=== PATIENT | male | born 1975 | race Caucasian/White ===

== ENCOUNTER 2016-04-27 17:14 | Emergency (ER) | payer SELFPAY ==
--- NOTE | 2016-04-27 17:39 | ER Document Report ---
ED Medical Screen (RME) - General Stated Complaint: ABDOMINAL PAIN Mode of Arrival: Ambulatory Information source: Patient Notes: Patient complains of lower abdominal pain that started yesterday. Patient denies any nausea, vomiting, diarrhea. Patient denies any urinary symptoms or fever. Last vomited was yesterday. hx: Hernia repair I have greeted and performed a rapid initial assessment of this patient. A comprehensive ED assessment and evaluation of the patient, analysis of test results and completion of the medical decision making process will be conducted by additional ED providers. TRAVEL OUTSIDE OF THE [place] IN LAST 30 DAYS: No - Related Data Allergies/Adverse Reactions: No Known Allergies Allergy (Verified 01/30/14 13:36) Past Medical History - Immunizations Hx Diphtheria, Pertussis, Tetanus Vaccination: Yes Physical Exam - Vital signs Vitals: Temp Pulse Resp BP Pulse Ox 97.6 F 67 18 128/86 H 97 04/27/16 17:27 04/27/16 17:27 04/27/16 17:27 04/27/16 17:27 04/27/16 17:27 - Abdominal Tenderness: Tender - Lower abdomen Course - Vital Signs Vital signs: Temp Pulse Resp BP Pulse Ox 97.6 F 67 18 128/86 H 97 04/27/16 17:27 04/27/16 17:27 04/27/16 17:27 04/27/16 17:27 04/27/16 17:27
[2016-04-27 18:38] LABS: ABSOLUTE BASOPHILS # (AUTO) 0.1 10^3/uL (0.0-0.2); ABSOLUTE EOSINOPHILS # (AUTO) 0.1 10^3/uL (0.0-0.6); ABSOLUTE LYMPHOCYTES (AUTO) 2.7 10^3/uL (0.5-4.7); ABSOLUTE MONOCYTES (AUTO) 0.8 10^3/uL (0.1-1.4); ABSOLUTE NEUT (AUTO) 5.5 10^3/uL (1.7-8.2); BASOPHILS % (AUTO) 1.4 % (0-2); EOSINOPHILS % (AUTO) 1.5 % (0-6); HEMATOCRIT 45.7 % (37.9-51.0); HGB HCT DIFFERENCE -0.7; LYMPHOCYTES % (AUTO) 29.2 % (13-45); MEAN CORPUSCULAR HEMOGLOBIN 29.2 pg (27.0-33.4); MEAN CORPUSCULAR HGB CONC 32.8 g/dL (32.0-36.0); MEAN CORPUSCULAR VOLUME 89 fl (80-97); RED BLOOD COUNT 5.14 10^6/uL (4.35-5.55); RED CELL DISTRIBUTION WIDTH 12.7 % (11.5-14.0); SEGMENTED NEUTROPHILS % (AUTO) 58.9 % (42-78); WHITE BLOOD COUNT 9.3 10^3/uL (4.0-10.5)
[2016-04-27 18:45] LABS: APPEARANCE,URINE SLIGHTLY-CLOUDY; BILIRUBIN,URINE NEGATIVE (NEGATIVE); GLUCOSE, URINE NEGATIVE (NEGATIVE); KETONES,URINE NEGATIVE (NEGATIVE); LEUKOCYTE ESTERASE,URINE NEGATIVE (NEGATIVE); NITRITE,URINE NEGATIVE (NEGATIVE); PROTEIN,URINE 30 mg/dL (NEGATIVE); UROBILINOGEN,URINE NEGATIVE mg/dL (<2.0)
[2016-04-27 18:56] LABS: ALANINE AMINOTRANSFERASE 26 U/L (21-72); ALBUMIN 4.2 g/dL (3.5-5.0); ALKALINE PHOSPHATASE 58 U/L (38-126); ANION GAP 10 (5-19); ASPARTATE AMINO TRANSFERASE 23 U/L (17-59); BILIRUBIN,TOTAL 1.6 mg/dL (0.2-1.3); BLOOD UREA NITROGEN 15 mg/dL (7-20); CARBON DIOXIDE 29 mmol/L (22-30); CHLORIDE 103 mmol/L (98-107); CREATININE RESULT 1.06 mg/dL (0.52-1.25); GLUCOSE 90 mg/dL (75-110); LIPASE 91.5 U/L (23-300); POTASSIUM 4.2 mmol/L (3.6-5.0); SODIUM 142.2 mmol/L (137-145); TOTAL PROTEIN 7.2 g/dL (6.3-8.2)
[2016-04-27] MEDS ORDERED: FENTANYL CITRATE INJ/PF 100 MCG/2 ML AMPUL IV ONE ×2 (19:44→22:04)
--- NOTE | 2016-04-27 19:44 | ER Document Report ---
ED GI/ - General Mode of Arrival: Ambulatory Information source: Patient TRAVEL OUTSIDE OF THE [place] IN LAST 30 DAYS: No - HPI Patient complains to provider of: Other - see narrative Timing/Duration: Persistent <GINA ANDUJAR - Last Filed: 04/27/16 23:07> <FEDE CHAMBERS - Last Filed: 04/29/16 01:29> - General Chief Complaint: Abdominal Pain Stated Complaint: ABDOMINAL PAIN Notes: Patient is a 40-year-old male that presents to the emergency department today with complaints of left-sided abdominal pain. Patient states his pain began yesterday after work. Patient states nothing happened at work that he can attribute to be the cause of this pain. Patient states he does feel mildly constipated. at bedside states that the patient was up all night last night and was diaphoretic and unable to sleep secondary to pain. Patient states he was trying to wait it out however the pain has not subsided. Patient denies any nausea, vomiting, diarrhea, or testicular pain. (GINA ANDUJAR) - Related Data Allergies/Adverse Reactions: No Known Allergies Allergy (Verified 04/27/16 17:38) Past Medical History - General Information source: Patient - Social History Smoking Status: Current Every Day Smoker Cigarette use (# per day): Yes Chew tobacco use (# tins/day): No Frequency of alcohol use: Occasional Drug Abuse: None Lives with: Family Family History: Reviewed & Not Pertinent Patient has suicidal ideation: No Patient has homicidal ideation: No - Medical History Medical History: Negative Surgical Hx: Negative - Immunizations Hx Diphtheria, Pertussis, Tetanus Vaccination: Yes <GINA ANDUJAR - Last Filed: 04/27/16 23:07> Review of Systems - Review of Systems Constitutional: No symptoms reported EENT: No symptoms reported Cardiovascular: No symptoms reported Respiratory: No symptoms reported Gastrointestinal: See HPI, Abdominal pain, Constipation. denies: Diarrhea, Nausea, Vomiting Genitourinary: No symptoms reported Male Genitourinary: denies: Testicular pain Musculoskeletal: No symptoms reported Skin: No symptoms reported Hematologic/Lymphatic: No symptoms reported Neurological/Psychological: No symptoms reported -: Yes All other systems reviewed and negative <GINA ANDUJAR - Last Filed: 04/27/16 23:07> Physical Exam <GINA ANDUJAR - Last Filed: 04/27/16 23:07> <FEDE CHAMBERS - Last Filed: 04/29/16 01:29> - Vital signs Vitals: Temp Pulse Resp BP Pulse Ox 97.6 F 67 18 128/86 H 97 04/27/16 17:27 04/27/16 17:27 04/27/16 17:27 04/27/16 17:27 04/27/16 17:27 (GINA ANDUJAR) (FEDE CHAMBERS) - Notes Notes: Physical Exam: General: Alert, appears uncomfortable. HEENT: Normocephalic. Atraumatic. PERRL. Extraocular movements intact. Oropharynx clear. Neck: Supple. Non-tender. Respiratory: No respiratory distress. Clear and equal breath sounds bilaterally. Cardiovascular: Regular rate and rhythm. Abdominal: Left lower quadrant abdominal pain, no guarding, rebound, or rigidity. No inguinal pain, no palpable hernia. No distension. Decreased Bowel Sounds. Back: Non-tender. No deformity or step off. Extremities: Moves all four extremities. Upper extremities: Normal inspection. Normal ROM. Lower extremities: Normal inspection.No edema. Normal ROM. Neurological: Normal cognition. AAOx4. Normal speech. Psychological: Normal affect. Normal Mood. Skin: Warm. Dry. Normal color. (GINA ANDUJAR) Course - Laboratory Result Diagrams: 04/27/16 18:20 04/27/16 18:20 <GINA ANDUJAR - Last Filed: 04/27/16 23:07> - Laboratory Result Diagrams: 04/27/16 18:20 04/27/16 18:20 <FEDE CHAMBERS - Last Filed: 04/29/16 01:29> - Re-evaluation Re-evalutation: 04/27/16 23:38 I personally performed the services described in the documentation, reviewed and edited the documentation which was dictated to my scribe in my presence, and it accurately records my words and actions. Patient presents emergency, left-sided abdominal pain. He is well-appearing nontoxic negative acute labs no fever on examination you can palpate a tightness in his rectus abdominis muscle on the left. No guarding rebound rigidity acute CT scan of the abdomen and pelvis shows no acute findings. The documentation is wrong at says no oral contrast and the read says no significant acute findings on scan with IV contrast patient did oral and IV contrast. He got resolution of his discomfort with pain medication serial abdominal examination pain is resolved unless he doesn't sit up type of motion. This point and we'll discharge him to home Tylenol Abby likely has an abdominal wall muscle strain with spasm. However follow-up his says she can see his family doctor Dr. Monteiro in 1-2 days and discussed reasons for ED return sooner (FEDE CHAMBERS) - Vital Signs Vital signs: Temp Pulse Resp BP Pulse Ox 98.0 F 68 18 122/84 99 04/27/16 23:20 04/27/16 23:20 04/27/16 23:20 04/27/16 23:20 04/27/16 23:20 (GINA ANDUJAR) (FEDE CHAMBERS) - Laboratory Laboratory results interpreted by me: 04/27/16 04/27/16 18:20 18:20 Total Bilirubin 1.6 H Urine Protein 30 H (GINA ANDUJAR) (FEDE CHAMBERS) Discharge <GINA ANDUJAR - Last Filed: 04/27/16 23:07> <FEDE CHAMBERS - Last Filed: 04/29/16 01:29> - Discharge Clinical Impression: Abdominal pain Qualifiers: Abdominal location: left lower quadrant Qualified Code(s): R10.32 - Left lower quadrant pain Condition: Stable Disposition: HOME, SELF-CARE Instructions: Abdominal Pain ([facility]) Additional Instructions: Abdominal Pain There are many causes of abdominal pain. Pain can mean a serious problem requiring surgery (such as appendicitis). It can also be an innocent problem that goes away on its own (such as a viral infection). Often, time must pass to determine the cause of pain. The physician does not feel that hospitalization is necessary, at present. Things may change within the next 24 hours. Call the doctor or come back for re- examination if any problems occur, such as: (1) Pain that becomes more severe, steady, or becomes concentrated in one specific area. Also, pain that is more severe with movement or coughing. (2) Vomiting that persists or becomes more frequent. (3) Blood in the vomitus, urine, or bowel movements. Blood in the stool may have a tarry or black appearance. (4) Shaking chills or fever greater than 100 degrees F. (5) The abdomen becomes more distended or swollen. (6) Bowel movements cease. (7) Failure to improve as expected. Referrals: ADAM LINDER MD [ACTIVE STAFF] - Follow up tomorrow (Call for an appointment to be seen in follow-up 1-2 days return for increasing worsening or new symptoms) Scribe Documentation - Scribe Written by Maximeibe:: Jessica Vilchis, [id number] acting as scribe for :: Ismael <GINA ANDUJAR - Last Filed: 04/27/16 23:07>
[2016-04-27 23:21] VITALS: BP 122/84
== END 2016-04-27 23:55 | disposition home or self-care (01) ==
LOC: ER 17:14
DX: R10.32 Left lower quadrant pain (principal); R10.9 Unspecified abdominal pain; F17.210 Nicotine dependence, cigarettes, uncomplicated
CPT/HCPCS: 99284; 36415; 83690; 85025; 80053; 81001; 74177; J3010